=== PATIENT | female | born 1945 | race Caucasian/White ===

== ENCOUNTER 2017-12-04 13:19 | Outpatient (CLI) | payer MEDICARE, BC ==
--- NOTE | 2017-12-04 16:28 | MRI ---
MRI BRAIN WITH AND WITHOUT CONTRAST 12/04/17 COMPARISON: 11/24/14, 12/06/14, 11/24/13. TECHNIQUE: Brain MRI is performed with and without intravenous gadolinium administration. Multisequential, multi planar imaging is performed. Pituitary protocol is utilized. FINDINGS: The calvarium has a normal T1 narrow signal intensity. Midline brain parenchymal structures are unrem arkable. Central arterial flow voids are maintained. Absent restricted diffusion. Stable white matter hyperint ensities in the axial FLAIR sequence due to chronic small vessel ischemic change. No significant opac ification of the sinuses and mastoid air cells. No pathologic enhancement of the brain parenchyma. MRI PITUITARY GLAND: There is a stable appearing pituitary gland. Previously noted convexity of the superior margin of the pituitary gland in November 2016 is less evident. Currently, the superior margin of the pituitary g land is somewhat flattened. The pituitary gland has not increased in size. Currently, the anterior po sterior dimension is 6 mm, mediolateral dimension is 6 mm and the craniocaudal dimension is 5 mm. Pi tuitary stalk is midline. No mass effect from the optic chiasm or prechiasmatic optic nerves. Postcontrast imaging does not demonstrate any pituitary microadenoma or macroadenoma. IMPRESSION: Interval decrease in size of the pituitary gland when compared to the examination from November 2013 . Pituitary gland is similar in appearance when compared to the most recent prior examination. POS: [facility]
== END 2017-12-04 13:20 | disposition home or self-care (01) ==
LOC: TBSIIMAG 13:19
PROVIDERS: ATTEND Neurological Surgery
DX: D49.7 Neoplasm of unspecified behavior of endocrine glands and other parts of nervous system (principal)
CPT/HCPCS: 70553